=== PATIENT | male | born 1970 | race American Indian/Alaskan Native ===

== ENCOUNTER 2018-08-19 10:59 | Emergency (ER) | payer MEDICARE ==
[2018-08-19] MEDS ORDERED: PERCOCET 5/325 PO ONE (12:07)
[2018-08-19] MEDS ORDERED: DELTASONE PO ONE (12:07)
--- NOTE | 2018-08-19 13:10 | Emergency Department Report ---
HPI - General Chief Complaint: Back Pain/Injury Time Seen by Provider: 08/19/18 11:57 - HPI HPI: 48-year-old male presents to the emergency department with complaint of acute on chronic low back pain with radiation down the legs. He also says that it feels like his legs are numb. It is worse when he first wakes up in the morning and he tries to shake out his legs to get the feeling back. He also complains of some cramping up in the bilateral hands. He says that he has been diagnosed with neuropathy in the past. Patient ambulatory with a cane but previously was in a wheelchair secondary to this condition. He does not have any primary care physician, neurologist, orthopedist or any local physicians that he follows up with regularly. He has been trying some [id number] pain medications for his symptoms without any relief. He denies any problems with bowel or bladder. ED Past Medical Hx - Past Medical History Additional medical history: encephalopathy, neuropathy - Surgical History Past Surgical History?: No - Social History Smoking Status: Former Smoker Substance Use Type: Alcohol - Medications Home Medications: Home Medications Medication Instructions Recorded Confirmed Last Taken Type Prednisone [predniSONE 10 mg 10 mg PO .TAPER #1 tab.ds.pk 08/19/18 Unknown Rx (6-Day Pack, 21 Tabs)] RX: Gabapentin [Neurontin] 300 mg PO Q8HR #30 capsule 08/19/18 Unknown Rx ED Review of Systems ROS: Stated complaint: HARD TO WALK/LEG PAIN Other details as noted in HPI Comment: All other systems reviewed and negative Constitutional: denies: chills, fever Eyes: denies: eye pain, eye discharge, vision change ENT: denies: ear pain, throat pain Respiratory: denies: cough, shortness of breath, wheezing Cardiovascular: denies: chest pain, palpitations Gastrointestinal: denies: abdominal pain, nausea, diarrhea Genitourinary: denies: urgency, dysuria Musculoskeletal: back pain. denies: joint swelling Skin: denies: rash, lesions Neurological: numbness. denies: headache Physical Exam - Physical Exam Vital Signs: Vital Signs 08/19/18 08/19/18 11:14 12:57 Temperature 97.6 F Pulse Rate 64 Respiratory 18 19 Rate Blood Pressure 128/77 O2 Sat by Pulse 100 100 Oximetry Physical Exam: GENERAL: The patient is well-developed well-nourished. HEENT: Normocephalic. Atraumatic. Patient has moist mucous membranes. EYES: Extraocular motions are intact. NECK: Supple. Trachea is midline. CHEST/LUNGS: Clear to auscultation. There is no respiratory distress noted. HEART/CARDIOVASCULAR: Regular. There is no tachycardia. There is no obvious murmur. ABDOMEN: Abdomen is soft, nontender. Patient has normal bowel sounds. There is no abdominal distention. SKIN: Skin is warm and dry. NEURO: The patient is awake, alert, and oriented. The patient is cooperative. The patient has normal speech. Cranial nerves II through XII grossly intact. Patient has some mild lower extremity weakness that is chronic and patient says is at his baseline. MUSCULOSKELETAL: There is no tenderness or deformity. There is no evidence of acute injury. BACK: There is both midline and low lumbar/sacral lateral tenderness to palpation but no step-off or deformity. ED Course Vital Signs 08/19/18 08/19/18 11:14 12:57 Temperature 97.6 F Pulse Rate 64 Respiratory 18 19 Rate Blood Pressure 128/77 O2 Sat by Pulse 100 100 Oximetry ED Medical Decision Making - Radiology Data Radiology results: image reviewed interpreted by me: X-ray of the lumbar spine does not show any fracture, subluxation or any acute process. - Medical Decision Making This patient presents to the emergency department with a complaint of some low back pain in the lumbar sacral region with radiation down his legs bilaterally along with some numbness. The patient says that this is a chronic condition for him. There is been no recent trauma. The patient has some history of neuropathy and encephalopathy about 1.5 years ago in which she had an MRI done of the brain and complete spine and was wheelchair bound secondary to these conditions. Since that time the patient has been improving to the point where he got to a walker and now to a cane for ambulation. The patient just got insurance and therefore he does not have outpatient follow-up for a primary care physician, orthopedist, neurosurgeon, or any type of physical rehabilitation. He comes in today mostly for the complaint of discomfort. He does have some complaints of numbness or decreased sensation that is worse first thing in the morning but also is a chronic condition for him. He had an x-ray done of the lumbar spine here that did not show any fracture, subluxation or any acute process. Patient refused any lab testing. He denies any numbness in the groin, any problems with bowel or bladder especially any urinary retention. He does not have any fever. All these reasons I did not feel that the patient needed emergent MRI imaging of his spine. The patient was in agreement with this. He was given a dose of pain medication here along with a steroid. He will be discharged home with a Medrol Dosepak and a Neurontin taper. He has been given referrals for primary care, orthopedist and neurosurgery. We did have a long discussion regarding any worsening of his pain, migration of pain, no pains, urinary retention, numbness especially in the groin region, development of fever with his back pain, as all being reasons for the patient to return to the emergency department immediately. - Differential Diagnosis lumbar radiculopathy, peripheral neuropathy, muscle spasm, electrolyte abno Critical Care Time: No Critical care attestation.: If time is entered above; I have spent that time in minutes in the direct care of this critically ill patient, excluding procedure time. ED Disposition Clinical Impression: Low back pain Qualifiers: Chronicity: chronic Back pain laterality: bilateral Sciatica presence: with sciatica Sciatica laterality: bilateral sciatica Qualified Code(s): M54.42 - Lumbago with sciatica, left side Peripheral neuropathy Qualifiers: Peripheral neuropathy type: polyneuropathy, unspecified Qualified Code(s): G62.9 - Polyneuropathy, unspecified Disposition: DC-01 TO HOME OR SELFCARE Is pt being admited?: No Condition: Stable Instructions: Peripheral Neuropathy (ED), Back Pain (ED) Additional Instructions: Please follow up with a primary care physician in the next few days. I am giving him a referral for a local neurosurgeon, Dr. Melo, as well as a referral for a orthopedic group, [facility], to follow up regarding your back pain and neuropathy. Please return to the emergency Department with any worsening of your symptoms development of fever, inability to urinate, worsening of her pain, migration of pain, new pains, or any acute distress. You have been prescribed a medication that can be sedating. Therefore, this medication cannot be taken prior to driving, working, being responsible for [employer] [facility], and cannot be mixed with alcohol of any quantity. Prescriptions: RX: Gabapentin [Neurontin] 300 mg PO Q8HR #30 capsule Prednisone [predniSONE 10 mg (6-Day Pack, 21 Tabs)] 10 mg PO .TAPER #1 tab.ds.pk Referrals: IDA DUGAN MD [Primary Care Provider] - 3-5 Days JENNIFER MELO MD [Staff Physician] - 3-5 Days [facility] [Provider Group] - 3-5 Days [facility] [Outside] - 3-5 Days Time of Disposition: 13:49
--- NOTE | 2018-08-19 13:34 | XRay Report ---
AP AND LATERAL LUMBOSACRAL SPINE: History: Low back pain. The vertebral bodies are well mineralized and normal in alignment and vertebral height with well preserved interspace distances. The visualized portions of the posterior elements are normal. IMPRESSION: Lumbar spine within normal limits.
[2018-08-19 14:13] VITALS: BP 126/86
== END 2018-08-19 14:12 | disposition home or self-care (01) ==
LOC: ED 10:59
DX: M54.42 Lumbago with sciatica, left side (principal); G62.9 Polyneuropathy, unspecified; Z87.891 Personal history of nicotine dependence
CPT/HCPCS: 72100; 99283; J7512